=== PATIENT | female | born 1965 | race Caucasian/White ===

== ENCOUNTER 2020-09-17 10:30 | Outpatient (CLI) | payer OTHER ==
--- NOTE | 2020-09-17 11:51 | XRAY Report ---
PROCEDURE: Hand 2 View LT INDICATIONS: CONTUSION OF LEFT HAND TECHNIQUE: 2 views of the hand(s) acquired. COMPARISON: None FINDINGS: Bones: No acute fractures or dislocations. Tiny well-corticated calcification adjacent to tip of ul flakita styloid is seen consistent with old injury. No suspicious bony lesions. Soft tissues: No suspicious soft tissue calcifications. IMPRESSION: No acute left hand fracture or dislocation. Old injury involving the tip of ulnar styloid. Reviewed by: Jonny Khalil MD on 09/17/2020 11:50 AM PDT Approved by: Jonny Khalil MD on 09/17/2020 11:50 AM PDT Station ID: [id number]
== END 2020-09-17 23:59 | disposition home or self-care (01) ==
LOC: DI.N 10:30
PROVIDERS: ATTEND Nurse Practitioner
DX: S60.222A Contusion of left hand, initial encounter (principal)

== ENCOUNTER 2020-10-19 08:28 | Outpatient (CLI) | payer OTHER ==
--- NOTE | 2020-10-19 10:11 | XRAY Report ---
PROCEDURE: Cervical Spine 2 View INDICATIONS: PARESTHESIA, HANDS TECHNIQUE: 3 view(s) of the cervical spine were acquired. COMPARISON: None. FINDINGS: Bones: No acute compression fractures or dislocations to the superior endplate of T2 level. The lat eral masses of C1 appear intact on the odontoid view. No suspicious bony lesions. Straightening of cervical lordosis. Multilevel cervical spondylosis with prominent endplate osteophyte formation at C5 -6. Soft tissues: No prevertebral soft tissue swelling. IMPRESSION: Cervical spine without acute fracture. Straightening of cervical lordosis likely related to positioning and/or concurrent muscle spasms. Multilevel spondylosis most severe at C5-6 where the re is disc space loss, degenerative endplate changes, and prominent anterior endplate osteophyte form ation. Reviewed by: Devon Valdovinos MD on 10/19/2020 10:10 AM PDT Approved by: Devon Valdovinos MD on 10/19/2020 10:10 AM PDT Station ID: [id number]
== END 2020-10-19 23:59 | disposition home or self-care (01) ==
LOC: DI.N 08:28
PROVIDERS: ATTEND Physician Assistant Medical
DX: R20.2 Paresthesia of skin (principal); M47.812 Spondylosis without myelopathy or radiculopathy, cervical region